=== PATIENT | male | born 1985 | race African-American/Black ===

== ENCOUNTER 2017-07-15 16:37 | Emergency (ER) | payer SELFPAY ==
[~2017-07-15] VITALS: Ht 182.9 cm; Wt 100.0 kg
[2017-07-15 17:41] VITALS: BP 139/82
[2017-07-15 19:25] LABS: CHLORIDE 104 mEq/L (98-107); HEMATOCRIT. 56.4 % (42.0-52.0); HEMOGLOBIN. 19.2 g/dL (14.0-18.0); MEAN CORPUSCULAR HEMOGLOBIN 29.8 pg (28.0-32.0); MEAN CORPUSCULAR VOLUME 87.6 fL (80.0-94.0); MEAN PLATELET VOLUME 10.4 fl (7.4-10.4); PLATELET 178 x1000/uL (130-400); RED BLOOD CELL COUNT 6.43 mill/uL (4.7-6.1); RED CELL DISTRIBUTION WIDTH 14.2 % (11.6-14.6)
[2017-07-15 19:26] LABS: INR 1.1
[2017-07-15 19:40] LABS: PLATELET ESTIMATE NORMAL
== END 2017-07-16 00:50 | disposition left against medical advice (07) ==
LOC: ER 17:30
DX: R10.84 Generalized abdominal pain (principal); R11.2 Nausea with vomiting, unspecified; Z53.21 Procedure and treatment not carried out due to patient leaving prior to being seen by health care provider
CPT/HCPCS: 36415; 80053; 83690; 85025; 85610